=== PATIENT | female | born 1970 | race Caucasian/White ===

== ENCOUNTER 2021-09-20 09:28 | Day surgery (SDC) | payer BC ==
[~2021-09-20] VITALS: Ht 162.6 cm; Wt 91.3 kg
[2021-09-20] MEDS ORDERED: LIPITOR 40MG TA40 MG PO (09:58)
[2021-09-20] MEDS ORDERED: LEXAPRO20 MG PO (09:58)
[2021-09-20] MEDS ORDERED: TYLENOL 500MG500 MG PO (09:59)
[2021-09-20 10:07] VITALS: BP 125/81; PULSE 83; TEMP 98.3
[2021-09-20 11:20] VITALS: BP 99/66; PULSE 80; TEMP 97.8
--- NOTE | 2021-09-20 11:20 | NUR ---
PATIENT RETURNS TO ROOM 4 VIA CART. ASSIST X 2 TO CHAIR. AT BEDSIDE. VITAL SIGNS WNL. PATIENT REQUESTS SPRITE AND CHOCOLATE PUDDING. DOCTOR AT BEDSIDE. WILL CONTINUE TO MONITOR.
[2021-09-20 11:35] VITALS: BP 111/68; PULSE 72
--- NOTE | 2021-09-20 11:35 | NUR ---
PATIENT IS AWAKE AND ORIENTED. ABLE TO AMBULATE TO BATHROOM WITHOUT ASSIST. IV REMOVED. VITAL SIGNS WNL. PATIENT DENIES ANY PAIN OR NAUSEA. WILL CONTINUE TO MONITOR.
[2021-09-20 11:50] VITALS: BP 133/69; PULSE 84
--- NOTE | 2021-09-20 11:50 | NUR ---
PATIENT IS READY FOR DISCHARGE. LAST SET OF VITALS WNL. DISCHARGE INSTRUCTIONS REVIEWED WITH PATIENT AND . PATIENT IS GETTING DRESSED AND I WILL TAKE HER OUT VIA WHEELCHAIR WHEN SHE IS READY.
== END 2021-09-20 11:55 | disposition home or self-care (01) ==
LOC: SDCO 09:28
DX: Z12.11 Encounter for screening for malignant neoplasm of colon (principal); K63.5 Polyp of colon; F17.210 Nicotine dependence, cigarettes, uncomplicated; F33.1 Major depressive disorder, recurrent, moderate; F41.1 Generalized anxiety disorder; N95.1 Menopausal and female climacteric states; Z79.899 Other long term (current) drug therapy
CPT/HCPCS: J2704; J7030